=== PATIENT | female | born 1980 | race Caucasian/White ===

== ENCOUNTER 2021-07-15 21:14 | Emergency (ER) | payer BC ==
[2021-07-15] MEDS ORDERED: Sodium Chloride 0.9% 10 ML Syringe FLUSH PRN (21:18)
[2021-07-15] MEDS ORDERED: Ondansetron 4 MG/2 ML SDV IVPUSH ONE (21:19)
[2021-07-15] MEDS ORDERED: Diphtheria,Pertussis(Acell),Tetanus Vaccine 0.5 ML Syringe IM ONE (21:19)
[2021-07-15] MEDS ORDERED: Sodium Chloride 0.9% 1,000 ML IV ONE (21:19)
[2021-07-15] MEDS ORDERED: HYDROmorphone 2 MG/ML SDV IVPUSH ONE ×2 (21:19→23:19)
[2021-07-15] MEDS ORDERED: LORazepam 2 MG/ML SDV IVPUSH ONE (22:47)
[2021-07-15] MEDS ORDERED: Piperacillin/Tazobactam 3.375 GM in Sodium Chloride 0.9% 50 ML IV SCH (23:00)
[2021-07-15] MEDS ORDERED: Ketorolac 30 MG/ML SDV IVPUSH ONE (23:19)
== END 2021-07-15 23:55 ==
LOC: FB.ED 21:14
DX: S62.300B Unspecified fracture of second metacarpal bone, right hand, initial encounter for open fracture (principal); S51.052A Open bite, left elbow, initial encounter; Z23 Encounter for immunization; W54.0XXA Bitten by dog, initial encounter
CPT/HCPCS: 73060-LT; 73090-LT; 73130-LT; 73130-RT; 90471; 90715; 96365; 96375; 96376; 99284; 99284-25; J1170; J1885; J2060; J2405; J2543; J7030